=== PATIENT | female | born 1960 | race Caucasian/White ===

== ENCOUNTER 2020-03-26 08:17 | Outpatient (CLI) | payer BC, SELFPAY ==
--- NOTE | 2020-03-26 08:43 | EST_ITS ---
Patient Info Name: Shruthi Rosenthal Age: 59 years : 1960 Gender: Female Ht: 67 in Wt: 130 lbs BSA: 1.67 m2 Exam Date: 03/26/2020 8:57 AM Exam Location: [facility] Stress Patient Status: Outpatient Admit Date: 03/26/2020 Staff Ordering Physician: Kath Sesay NP Attending Provider: Kath Sesay NP Exercise Technologist: Linda Moreno RDCS Exercise Physician: Hector Do DO Exam Type: CA stress test treadmill Study Info Indications R07.9 - Chest pain, unspecified A treadmill exercise stress test was performed. Summary 1. 1. Negative Hema exercise stress test for ischemic ST changes by ECG criteria. 2. 2. Good functional capacity, achieving 10 METs of workload. 3. 3. Appropriate HR response to exercise. 4. 4. Appropriate HR recovery at 1 minute post exercise. 5. 5. No imaging with stress testing. 6. 6. Patient informed of the above results. Protocol: Hema Stress ECG Details Stage: REST Duration (min): 1 min : 9 sec Speed (mph): 0.0 Grade (%): 0 HR (bpm): 54 SBP (mmHg): 130 DBP (mmHg): 79 METS: --- Stage: REST Duration (min): 9 min : 50 sec Speed (mph): 0.0 Grade (%): 0 HR (bpm): 67 SBP (mmHg): 130 DBP (mmHg): 79 METS: --- Stage: STAGE 1 Duration (min): 1 min : 0 sec Speed (mph): 1.7 Grade (%): 10 HR (bpm): 86 SBP (mmHg): 130 DBP (mmHg): 79 METS: --- Stage: STAGE 1 Duration (min): 2 min : 0 sec Speed (mph): 1.7 Grade (%): 10 HR (bpm): 97 SBP (mmHg): 130 DBP (mmHg): 79 METS: --- Stage: STAGE 1 Duration (min): 3 min : 0 sec Speed (mph): 1.7 Grade (%): 10 HR (bpm): 98 SBP (mmHg): 127 DBP (mmHg): 64 METS: --- Stage: STAGE 2 Duration (min): 1 min : 0 sec Speed (mph): 2.5 Grade (%): 12 HR (bpm): 108 SBP (mmHg): 127 DBP (mmHg): 64 METS: --- Stage: STAGE 2 Duration (min): 2 min : 0 sec Speed (mph): 2.5 Grade (%): 12 HR (bpm): 114 SBP (mmHg): 167 DBP (mmHg): 90 METS: --- Stage: STAGE 2 Duration (min): 3 min : 0 sec Speed (mph): 2.5 Grade (%): 12 HR (bpm): 123 SBP (mmHg): 167 DBP (mmHg): 90 METS: --- Stage: STAGE 3 Duration (min): 1 min : 0 sec Speed (mph): 3.4 Grade (%): 14 HR (bpm): 134 SBP (mmHg): 167 DBP (mmHg): 90 METS: --- Stage: STAGE 3 Duration (min): 2 min : 0 sec Speed (mph): 3.4 Grade (%): 14 HR (bpm): 140 SBP (mmHg): 140 DBP (mmHg): 72 METS: --- Stage: STAGE 3 Duration (min): 3 min : 0 sec Speed (mph): 3.4 Grade (%): 14 HR (bpm): 143 SBP (mmHg): 132 DBP (mmHg): 74 METS: --- Stage: RECOVERY Duration (min): 0 min : 59 sec Speed (mph): 0.0 Grade (%): 0 HR (bpm): 108 SBP (mmHg): 132 DBP (mmHg): 74 METS: --- Stage: RECOVERY Duration (min): 1 min : 59 sec Speed (m
== END 2020-03-26 08:18 | disposition home or self-care (01) ==
PROVIDERS: PCP Family Medicine; Visit Provider Nurse Practitioner Family
DX: R07.9 Chest pain, unspecified (principal)
CPT/HCPCS: 93017

== ENCOUNTER → 2020-05-17 09:14 | Outpatient (CLI) | payer BC, SELFPAY ==
--- NOTE | ~2020-05-17 | DEXA_ITS ---
Bone Density Report Name: Shruthi Rosenthal Age: 60 Sex: Female Ethnicity: White Date of : 1960 Indication: postmenopausal; screening for osteoporosis; parental hip fracture; Referring Provider: SHEREE GRIMM Study: Bone densitometry was performed. Exam Date: May 17, 2020 Accession number: [id number] Bone Density: Region BMD T-score Z-score Classification AP Spine (L1-L4) 0.913 -1.2 0.2 Osteopenia Femoral Neck (Left) 0.691 -1.4 -0.1 Osteopenia Total Hip (Left) 0.796 -1.2 -0.3 Osteopenia Femoral Neck (Right) 0.685 -1.5 -0.2 Osteopenia Total Hip (Right) 0.802 -1.1 -0.2 Osteopenia Total Hip Mean 0.799 -1.2 -0.3 Osteopenia World Health Organization criteria for BMD impression classify patients as: Normal (T-score at or above -1.0), Osteopenia (T-score between -1.0 and -2.5), or Osteoporosis (T-score at or below -2.5). 10-year Fracture Risk(1): Major Osteoporotic Fracture 14% Hip Fracture 0.6% Reported Risk Factors: [place] (), Neck BMD=0.685, BMI=20.3, parental fracture (1) FRAX(R) Version 3.08. Fracture probability calculated for an untreated patient. Fracture probability may be lower if the patient has received treatment. Clinical Information Provided by Patient: Parent has had a hip fracture Has used the following medications: Vitamin D Patient maximum height was 67 Menopause Age: 50 Drinks caffeinated beverages Onset of menses at age 13 Number of children 2 Impression: The patient has low bone mass, based on the Right Femoral Neck T-score. The patient has an estimated ten-year risk of hip fracture of 0.6% and an estimated ten-year risk of major fracture of 14%, based on the WHO FRAX algorithm. The patient has risk factors, including: parental hip fracture. Discussion: BONE DENSITY IS LOW AT ONE OR MORE SKELETAL SITES. This patient's lowest T-score is low at one or more skeletal sites. It meets the World Health Organization's (WHO) criteria for ?low bone mass? (T-score between -1.0 and -2.5). The patient's 10-year risk of fracture as calculated by FRAX is less than the threshold where pharmacological therapy is recommended by the National Osteoporosis Foundation (NOF). However, all treatment decisions require clinical judgment and consideration of individual patient factors, including patient preferences, comorbidities, previous drug use, risk factors not captured in the FRAX model (e.g., frailty, falls, vitamin D deficiency, increased bone turnover, interval significant decline in bone density) and possible under or overestimation of fracture risk by FRAX. The patient should follow a healthful lifestyle (good nutrition with adequate calcium and vitamin D, and appropriate weight-bearing exercise). Follow-Up: Consider repeating this study in 2 to 3 years to reassess
== END ==
PROVIDERS: Visit Provider Obstetrics & Gynecology
DX: Z78.0 Asymptomatic menopausal state (principal); M85.89 Other specified disorders of bone density and structure, multiple sites
CPT/HCPCS: 77080

== ENCOUNTER 2020-06-15 00:38 | Outpatient (CLI) | payer BC, SELFPAY ==
[2020-06-15 18:51] LABS: SARS-CoV-2 RNA PCR Negative
== END 2020-06-15 00:39 | disposition home or self-care (01) ==
LOC: ANHCOVIDDT 00:38
PROVIDERS: PCP Family Medicine; Visit Provider Internal Medicine Gastroenterology
DX: Z01.812 Encounter for preprocedural laboratory examination (principal); Z20.828 Contact with and (suspected) exposure to other viral communicable diseases
CPT/HCPCS: 87635; C9803; U0003

== ENCOUNTER 2020-06-18 01:08 | Day surgery (SDC) | payer BC, SELFPAY ==
[2020-06-09 13:34] VITALS: BMI 20.9
[2020-06-18 06:14] VITALS: BP 113/56; PULSE 69; RESP 20; TEMP 36.6; O2SAT 100; BMI 19.9
[2020-06-18] MEDS: LACTATED RINGERS 1,000 ML 150 ML IV CONT (06:25)
--- NOTE | 2020-06-18 07:21 | WPDANESEPPF ---
Anes - Initial Pre Proc Eval Procedure: Operation Date: 06/18/20 07:30 Proposed Procedures p Screening Colonoscopy - Roc Mac MD Date/Time: 06/18/20 07:21 Surgeon: Roc Mac MD Pre Op Diagnosis: Neoplasm Screening Patient Data Age: 60 Gender: F Height: 5 ft 6 in Weight: 56.1 kg Last Vital Signs Temp 98 F 06/18/20 06:14 Pulse 69 06/18/20 06:14 Resp 20 06/18/20 06:14 BP 113/56 L 06/18/20 06:14 Pulse Ox 100 06/18/20 06:14 Allergies Allergy/AdvReac Type Severity Reaction Status Date / Time No Known Allergies Verified 06/18/20 06:13 Home Medications Medication Instructions Recorded Confirmed Type ergocalciferol (vitamin D2) 1,000 unit PO DAILY 06/18/20 06/18/20 History [Vitamin D2] lactobacillus combination no.8 3,000 mmu cells PO DAILY 06/18/20 06/18/20 History [Adult Probiotic] Patient hx anesthesia problems: none Family hx anesthesia problems: none PMFSH Past Medical History Medical History Atrophic vaginitis GERD without esophagitis History of vaginal delivery x 2 Vaginal discharge Surgical History Surgical History History of cholecystectomy History of endometrial ablation History of loop electrical excision procedure (LEEP) Family History Family History Mother Family history of malignant neoplasm of breast in first degree relative Family history of malignant neoplasm of uterus Father Family history of heart disease in male family member before age 55 Grandparent Hypertension Cerebrovascular accident Family history of malignant neoplasm of breast Family history of lymphoma Other Acute myocardial infarction Social History Social History Smoking status: Never smoker Alcohol intake: never Substance use: never Substance use type: does not use Living arrangements: with family Spiritual care concerns: No Anes - Eval Final PreProcedure Day of Procedure 06/18/20 07:21 Patient weight: normal Heart: regular rate and rhythm Lungs: clear to auscultation Airway: Mallampati scale class II Neurological: alert and oriented Last oral intake: >/= 8 hours ASA classification: II Emergent: no Anesthetic plan: proceed Anesthesia type and monitoring: general GIVS and standard monitoring Informed Consent: The patient's anesthetic plan and its attendant risks and benefits were discussed with the patient/family/POA. Questions were solicited and answers provided to the satisfaction of the patient/family/POA.
--- NOTE | 2020-06-18 07:37 | PM.HPGS ---
History of Present Illness History of Present Illness Consent: Risks, benefits, and alternatives have been discussed and questions answered. Patient agrees to proceed with procedure. Chief complaint: Neoplasm Screening Narrative: Shruthi Rosenthal is a 60 year old female here for colonoscopy, last one 10 years ago Review of Systems Constitutional: Constitutional: Denies headache(s) and Denies weakness Eyes: Eyes: Denies blurry vision ENT: Reports Normal hearing present, Denies headache(s) and Denies neck pain Cardiovascular: Cardiovascular: Denies chest pain and Denies dyspnea Respiratory: Respiratory: Denies dyspnea Gastrointestinal: Gastrointestinal: Reports no additional gastrointestinal complaints Genitourinary: Genitourinary: Denies dysuria Musculoskeletal: Musculoskeletal: Denies neck pain Integumentary/Breasts: Skin/Breast: Denies dry skin Neurologic: Reports Normal hearing present, Denies headache(s) and Denies weakness Psychiatric: Psychiatric: Denies anxiety Endocrine: Endocrine: Denies change in body appearance Hematologic/Lymphatic: Hematologic/Lymphatic: Denies easy bleeding Allergic/Immunologic: Allergic/Immunologic: Denies urticaria PMFSH Past Medical History Medical History Atrophic vaginitis GERD without esophagitis History of vaginal delivery x 2 Vaginal discharge Surgical History Surgical History History of cholecystectomy History of endometrial ablation History of loop electrical excision procedure (LEEP) Family History Family History Mother Family history of malignant neoplasm of breast in first degree relative Family history of malignant neoplasm of uterus Father Family history of heart disease in male family member before age 55 Grandparent Hypertension Cerebrovascular accident Family history of malignant neoplasm of breast Family history of lymphoma Other Acute myocardial infarction Social History Social History Smoking status: Never smoker Alcohol intake: never Substance use: never Substance use type: does not use Living arrangements: with family Spiritual care concerns: No Meds Home Medications and Allergies Home Medications Medication Instructions Recorded Confirmed Type ergocalciferol (vitamin D2) 1,000 unit PO DAILY 06/18/20 06/18/20 History [Vitamin D2] lactobacillus combination no.8 3,000 mmu cells PO DAILY 06/18/20 06/18/20 History [Adult Probiotic] Allergies Allergy/AdvReac Type Severity Reaction Status Date / Time No Known Allergies Verified 06/18/20 06:13 Vital Signs Vital Signs - 24 hr 06/18/20 06:14 Temperature 98 F Pulse Rate 69 Respiratory Rate 20 Blood Pressure 113/56 L Pulse Oximetry 100 Exam Const: General: comfortable and no acute distress HENMT: General nose exam: Normal nares present Eyes: General: appearance normal, both eyes and all related structures Neck: Neck: no JVD Resp: Auscultation: clear to auscultation bilaterally Cardio: Rate: regular rate Rhythm: regular rhythm GI: Inspection: non-distended GI Palp: Yes Soft to palpation Skin: General skin exam: normal color Neuro: General: gait normal Speech: normal speech Extrem: General: normal to inspection Psych: Mental Status: mental status grossly normal Assessment and Plan Assessment and plan (1) Colon cancer screening: Code(s): Z12.11 - Encounter for screening for malignant neoplasm of colon Status: Acute Assessment and Plan: will proceed with colonoscopy
[2020-06-18 08:10] VITALS: BP 93/47; PULSE 59; RESP 16; O2SAT 100
[2020-06-18 08:20] VITALS: BP 86/50; PULSE 53; RESP 14; O2SAT 100
[2020-06-18 08:30] VITALS: BP 99/61; PULSE 59; RESP 16; O2SAT 100
== END 2020-06-18 08:51 | disposition home or self-care (01) ==
PROVIDERS: PCP Family Medicine; Visit Provider Internal Medicine Gastroenterology
PROC: 0DJD8ZZ Inspection of Lower Intestinal Tract, Via Natural or Artificial Opening Endoscopic (ICD-10-PCS; CPT 45378; principal; 2020-06-18 07:30)
DX: Z12.11 Encounter for screening for malignant neoplasm of colon (principal); K21.9 Gastro-esophageal reflux disease without esophagitis; Z90.49 Acquired absence of other specified parts of digestive tract; K62.89 Other specified diseases of anus and rectum; K64.4 Residual hemorrhoidal skin tags; D12.0 Benign neoplasm of cecum; K63.5 Polyp of colon
CPT/HCPCS: 45385; 88305; J2704; J7120

== ENCOUNTER 2021-09-07 13:27 | Emergency (ER) | payer OTHER, SELFPAY ==
--- NOTE | 2021-09-07 13:37 | ED.FALL ---
HPI - Fall General Chief Complaint: Fall Stated Complaint: Forehead injury and right elbow. Time Seen by Provider: 09/07/21 13:37 Source: patient Mode of arrival: ambulatory Limitations: no limitations History of Present Illness HPI Narrative: 61 yo F presents with laceration to forehead and abrasion to R elbow. pt was walking up basement stairs carrying multiple things in her arms. She tripped at the top step and hit R elbow first and then hit forehead on floor. Was not able to break her fall due to all the items she was carrying. Denies LOC. Her was right there and helped her up. She denies headache, vision change, no N/V. Ambulatory with steady gait. no complaints of pain. All systems reviewed and negative except as noted above. Related Data Home Medications Medication Instructions Recorded Confirmed lactobacillus combination no.8 3,000 mmu cells PO DAILY 06/18/20 06/08/21 [Adult Probiotic] cholecalciferol (vitamin D3) 25 25 mcg PO DAILY 03/22/21 06/08/21 mcg (1,000 unit) capsule Allergies Allergy/AdvReac Type Severity Reaction Status Date / Time No Known Allergies Verified 06/08/21 14:06 Review of Systems Review of Systems: CONSTITUTIONAL: Denies fever, chills, or sweats. EYES: Denies visual changes, redness, or discharge. ENT: Denies rhinorrhea, congestion, sore throat, or otalgia. CARDIOVASCULAR: Denies chest pain, palpitations, or edema. RESPIRATORY: Denies cough or dyspnea. GASTROINTESTINAL: Denies abdominal pain, nausea, vomiting, or diarrhea. GENITOURINARY: Denies dysuria or hematuria. SKIN: Denies rash or itching. Laceration to forehead. Abrasion to right elbow. MUSCULOSKELETAL: Denies back pain, joint pain, or myalgia. NEUROLOGIC: Denies headache, numbness, or weakness. PSYCHIATRIC: Denies anxiety or depression. All other systems reviewed are negative, except as documented in HPI. [facility] Past Medical History Medical History Atrophic vaginitis Colon cancer screening GERD without esophagitis History of vaginal delivery x 2 Osteopenia Vaginal discharge Surgical History Surgical History History of cholecystectomy History of endometrial ablation History of loop electrical excision procedure (LEEP) S/P lumpectomy of breast Family History Family History Mother Family history of malignant neoplasm of breast in first degree relative Family history of malignant neoplasm of uterus Father Family history of heart disease in male family member before age 55 Grandparent Hypertension Cerebrovascular accident Family history of malignant neoplasm of breast Family history of lymphoma Other Acute myocardial infarction Social History Social History Smoking status: Never smoker Alcohol intake: never Substance use: never Substance use type: does not use Spiritual care concerns: No Comments At time of signature, agree with nursing past medical, surgical, social and family history. There is no relevant family history pertinent to the presenting complaint. Exam Narrative: GENERAL: This is a well-nourished, well-developed patient, in no apparent distress. HEAD: normocephalic, atraumatic. EYES: PERRL. Sclera clear/white. Vision is grossly intact. EARS: External ears normal, auditory canals clear and without drainage, TMs normal without perforation. Hearing grossly intact. NOSE: External nose normal with no obvious nasal discharge, nares without redness, no rhinorrhea. THROAT: Mucous membranes moist, posterior pharynx clear. NECK: Neck supple, non-tender without lymphadenopathy, masses or thyromegaly. CARDIOVASCULAR: Regular rate and rhythm without murmurs, gallops, or rubs. RESPIRATORY: Clear to auscultation. Breath sounds equal bilaterally. No wheezes, rales,
[2021-09-07 13:39] VITALS: BP 128/63; PULSE 62; RESP 16; TEMP 36.9; O2SAT 100
--- NOTE | 2021-09-07 14:15 | PC.NURSE ---
Last tetanus 2016 per [employer] [facility] and .
== END 2021-09-07 14:01 | disposition home or self-care (01) ==
PROVIDERS: Emergency Provider Nurse Practitioner Family; PCP Family Medicine
DX: S01.81XA Laceration without foreign body of other part of head, initial encounter (principal); S50.311A Abrasion of right elbow, initial encounter; W10.9XXA Fall (on) (from) unspecified stairs and steps, initial encounter; K21.9 Gastro-esophageal reflux disease without esophagitis; M85.80 Other specified disorders of bone density and structure, unspecified site
CPT/HCPCS: 12011; 99212; G0463

== ENCOUNTER 2022-10-23 15:04 | Outpatient (CLI) | payer OTHER, SELFPAY ==
--- NOTE | ~2022-10-23 | DEXA_ITS ---
Bone Density Report Name: DARRELL RAY Age: 62 Sex: Female Ethnicity: White Date of : 1960 Indication: postmenopausal; screening for osteoporosis; Referring Provider: SHEREE GRIMM Study: Bone densitometry was performed. Exam Date: October 23, 2022 Accession number: [id number] Bone Density: Region BMD T-score Z-score Classification AP Spine(L1-L4) 0.922 -1.1 0.4 Osteopenia Femoral Neck (Left) 0.678 -1.5 -0.1 Osteopenia Total Hip (Left) 0.801 -1.2 -0.1 Osteopenia Femoral Neck (Right) 0.621 -2.1 -0.7 Osteopenia Total Hip (Right) 0.775 -1.4 -0.3 Osteopenia Total Hip Mean 0.788 -1.3 -0.2 Osteopenia World Health Organization criteria for BMD impression classify patients as: Normal (T-score at or above -1.0), Osteopenia (T-score between -1.0 and -2.5), or Osteoporosis (T-score at or below -2.5). 10-year Fracture Risk(1): Major Osteoporotic Fracture 9.8% Hip Fracture 1.4% Reported Risk Factors: [place] (), Neck BMD=0.621, BMI=22.7 (1) FRAX(R) Version 3.08. Fracture probability calculated for an untreated patient. Fracture probability may be lower if the patient has received treatment. Previous Exams: Region Exam Age BMD T-score BMD Change BMD Change Date g/cm2 vs Baseline vs Previous AP Spine (L1-L4) 10/23/2022 62 0.922 -1.1 -0.072 (-7.3%) -0.054 (-5.5%) 08/04/2015 55 0.976 -0.6 -0.019 (-1.9%) -0.019 (-1.9%) 01/08/2012 51 0.995 -0.5 Total Hip(Left) 10/23/2022 62 0.801 -1.2 -0.111 (-12.2% -0.088 (-9.9%) 08/04/2015 55 0.890 -0.4 -0.023 (-2.5%) -0.023 (-2.5%) 01/08/2012 51 0.912 -0.2 Total Hip(Right) 10/23/2022 62 0.775 -1.4 -0.133 (-14.6% -0.078 (-9.1%) 08/04/2015 55 0.853 -0.7 -0.055 (-6.0%) -0.055 (-6.0%) 01/08/2012 51 0.908 -0.3 *Denotes significance at 95% confidence level, LSC for AP Spine = 0.022 g/cm2, LSC for Total Hip = 0.027 g/cm2 # Denotes dissimilar scan types or analysis methods Clinical Information Provided by Patient: Has used the following medications: Vitamin D Patient maximum height was 67 Menopause Age: 50 Drinks caffeinated beverages Onset of menses at age 13 Number of children 2 Impression: The patient has low bone mass, based on the Right Femoral Neck T-score. The patient has an estimated ten-year risk of hip fracture of 1.4% and an estimated ten-year risk of major fracture of 9.8%, based on the WHO FRAX algorithm. The BMD for
== END 2022-10-23 15:05 | disposition home or self-care (01) ==
PROVIDERS: PCP Family Medicine; Visit Provider Obstetrics & Gynecology
DX: M85.80 Other specified disorders of bone density and structure, unspecified site (principal)
CPT/HCPCS: 77080

== ENCOUNTER 2023-04-05 08:33 | Outpatient (CLI) | payer OTHER, SELFPAY ==
[2023-04-09 10:36] LABS: Kit Draw Collected
== END 2023-04-05 08:34 | disposition home or self-care (01) ==
LOC: ANHGOSHLAB 08:35
PROVIDERS: PCP Family Medicine; Visit Provider Nurse Practitioner Family
DX: Z00.00 Encounter for general adult medical examination without abnormal findings (principal); I10 Essential (primary) hypertension; Z13.1 Encounter for screening for diabetes mellitus; Z13.21 Encounter for screening for nutritional disorder; Z13.220 Encounter for screening for lipoid disorders; Z13.29 Encounter for screening for other suspected endocrine disorder
CPT/HCPCS: 36415

== ENCOUNTER 2024-04-08 08:33 | Outpatient (CLI) | payer OTHER, SELFPAY ==
[2024-04-08 14:09] LABS: Basophils Absolute Auto 0.1 K/mm3 (0.0-0.1); Basophils Percent Auto 0.9 % (0.2-1.2); Eosinophils Absolute Auto 0.5 K/mm3 (0-0.3); Eosinophils Percent Auto 7.2 % (0-4.4); Hematocrit 46.7 % (37.0-47.0); Immature Granulocyte Absolute 0.01 K/mm3 (0.00-0.031); Immature Granulocyte Percent A 0.2 % (0-0.5); Lymphocytes Absolute Auto 2.56 K/mm3 (0.9-3.2); Lymphocytes Percent Auto 39.3 % (18.3-44.2); Mean Corpuscular HGB Conc 32.1 g/dl (32-36); Mean Corpuscular Hemoglobin 30.1 pg (26-34); Mean Corpuscular Volume 93.6 fl (80-100); Mean Platelet Volume 12.1 fl (7.4-10.4); Monocytes Absolute Auto 0.4 K/mm3 (0.1-0.6); Monocytes Percent Auto 6.6 % (2.6-8.5); Neutrophils Percent Auto 45.8 % (45.5-73.1); Platelet Count Result 271 k/mm3 (150-375); Red Blood Count 4.99 M/mm3 (4.2-5.4); Red Cell Distribution Width 14.1 % (11.5-14.5); White Blood Count 6.5 K/mm3 (4.5-10.0)
[2024-04-08 14:34] LABS: Alanine Aminotransferase 18 U/L (6-35); Albumin Level 4.6 g/dL (3.5-5.1); Alkaline Phosphatase 54 U/L (38-126); Anion Gap 5 mmol/L (4-12); Aspartate Amino Transferase 63 U/L (14-36); Bilirubin,Total 0.5 mg/dL (0.2-1.3); Blood Urea Nitrogen 15 mg/dL (7-17); Calcium 9.7 mg/dL (8.4-10.2); Carbon Dioxide 33 mmol/L (22-30); Chloride 102 mmol/L (98-107); Cholesterol 286 mg/dL (0-200); Estimated Glomerular Filt Rate > 60; Glucose 87 mg/dL (65-110); HDL Direct 71 mg/dL; Potassium 4.4 mmol/L (3.4-5.0); Sodium 140 mmol/L (137-145); Triglycerides 93 mg/dL (<150)
[2024-04-08 14:44] LABS: LDL Cholesterol Direct 144 mg/dL
== END 2024-04-08 08:34 | disposition home or self-care (01) ==
PROVIDERS: PCP Family Medicine; Visit Provider Nurse Practitioner Family
DX: Z00.00 Encounter for general adult medical examination without abnormal findings (principal); E55.9 Vitamin D deficiency, unspecified; E78.5 Hyperlipidemia, unspecified
CPT/HCPCS: 36415; 80053; 80061; 82306; 84443; 85025

== ENCOUNTER 2025-04-13 09:14 | Outpatient (CLI) | payer MEDICARE, SELFPAY ==
--- OUTSIDE RECORDS SUMMARY | 2025-04-13 09:57 | XMS_ITS | Clinical Summary ---
Author Organization [employer] [facility] Address [address] [place] [address] Care Team Providers Care Transit Specialist Name Role Phone Unavailable Primary Care Provider Unavailabl e Medications mupirocin (BACTROBAN) 2 % Ointment Apply to the affected area(s) three times daily 22 Gram 04/13/2025 Active rosuvastatin (CRESTOR) 5 mg tablet Take 1 Tablet (5 mg) by mouth daily at bedtime. 90 Tablet 3 04/13/2025 Active Encounters Date Type Department Care Team Description 03/24/2025 External Device Data [facility] Provider, Abstract 02/10/2025 External Device Data [facility] Provider, Abstract 01/21/2025 External Device Data [facility] Provider, Abstract 01/20/2025 External Device Data [facility] Provider, Abstract from Last 3 Months Social History Tobacco Use Types Packs/Day Years Used Date Smoking Tobacco: Never Assessed Comments Unknown Sex and Gender Information Value Date Recorded Sex Assigned at Not on file Legal Sex Female 12:35 PM [employer] Gender Identity Not on file Sexual Orientation Not on file Plan of Treatment Health Maintenance Due Date Last Done Comments DTAP/TDAP/TD VACCINES (1 - Tdap) 1979 HPV/Cotest (21-29) 1981 CERVICAL CANCER SCREENING 1990 HPV/Cotest (30-65) 1990 PAP SMEAR 1990 BREAST CANCER SCREENING 2000 COLORECTAL SCREENING 2005 Colorectal Cancer Screening 2005 FIT-DNA Q 3 years 2005 FIT/FOBT Q 1 year 2005 Flex Sig/CT Colonography Q 5 years 2005 ZOSTER VACCINE (1 of 2) 2010 INFLUENZA VACCINE (#1) 2025 RSV VACCINE (60+ or ) (1 - 1-dose 75+ series) 2035 Insurance RX [employer] Medicare Part D
--- OUTSIDE RECORDS SUMMARY | 2025-04-13 09:57 | XMS_ITS | Clinical Summary ---
Author Organization [facility] Address [address] [place] [address] Care Team Providers Care Hosiery Pairer Name Role Phone Arin Russo MD Primary Care Provider Unknown, Provider Unavailable Unavailable Kath Sesay APRN-CONFIDENTIAL INVESTIGATOR Unavailable [phone] Source Comments [facility],non-owned Affiliates and Associated Physician Practices is amultiple site organization consisting of ambulatory clinics and hospital sitesin [place], [place], [place] and [place]. This disclosure is being madepursuant to the Care Everywhere program and may not contain all information available regarding this patient. Last updated 18.[facility] Family History Medical History Relation Name Comments Cancer - Breast Maternal Grandmother Cancer - Bladder Mother Cancer - Breast Mother Relation Name Status Comments Maternal Grandmother Mother Social History Tobacco Use Types Packs/Day Years Used Date Smoking Tobacco: Never Assessed Comments No Sex and Gender Information Value Date Recorded Sex Assigned at Female 11/28/2024 9:04 AM CDT Legal Sex Female 2:53 PM JAIL GUARD Gender Identity Female 11/28/2024 9:04 AM CDT Sexual Orientation Straight 11/28/2024 9: 04 AM CDT Last Filed Vital Signs Vital Sign Reading Time Taken Comments Blood Pressure - - Pulse - - Temperature - - Respiratory Rate - - Oxygen Saturation - - Inhaled Oxygen Concentration - - Weight 63.5 kg (140 lb) 11/26/2024 9:45 AM CDT Height 170.2 cm (5' 7) 11/26/2024 9:45 AM CDT Body Mass Index 21.93 11/26/2024 9:45 AM CDT Plan of Treatment Health Maintenance Due Date Last Done Comments COLOGUARD (AGES 45-75) - COLON CA SCREENING 1960 COLON MONITORING 1960 COLONOSCOPY - COLON CA SCREENING 1960 CT COLONOGRAPHY - COLON CA SCREENING 1960 Colorectal Cancer Screening 1960 FIT - COLON CA SCREENING 1960 FLEX SIG - COLON CA SCREENING 1960 LIPID TESTING 1960 HIV SCREENING 1975 HEPATITIS C SCREENING 04/27/1978 DTAP/TDAP/TD VACCINES (1 - Tdap) 1979 PAP SMEAR 1981 PNEUMOCOCCAL VACCINE 50+ (1 of 1 - PCV) 2010 ZOSTER VACCINE (1 of 2) 2010 DEPRESSION SCREENING 07/09/2024 COVID-19 VACCINE (1 - 2023- season) 2025 INFLUENZA VACCINE (#1) 2025 MAMMOGRAM 11/26/2026 11/26/2024, 050 12/2023, 08/10/2022, Additional history exists Respiratory Syncytial Virus (RSV) Vaccine Pt: or over 60 yrs (1 - 1-dose 75+ series) 2035 HEPATITIS B VACCINE Aged Out No longe r eligible based on patient's age to complete this topic HIB VACCINE Aged Out No longer eligi ble based on patient's age to complete this topic HPV VACCINE Aged Out No longer eligi ble based on patient's age to complete this topic MENINGOCOCCAL (Group B) VACCINE SHARED DECISION-MAKING Aged Out No longer eligible based on patient's age to complete this topic MENINGOCOCCAL GROUPS A/C/Y/W VACCINE Aged Out No longer eligible based on patient's age to complete this topic Procedures Procedure Name Priority Date/Time Associated Diagnosis Comments MAMMO BILAT SCREENING W SHAKIR Routine 11/26/2024 9:41 AM CDT Encounter for screening mammogram for malignant neoplasm of breast from Last 3 Months or Most Recently Relevant to Health Maintenance Results * Mammo Bilat Screening W Shakir (11/26/2024 9:41 AM CDT) Anatomical Region Laterality Modality Breast Bilateral Mammography 11/28/2024 12:2 3 PM CDT Impressions 11/28/2024 12:32 PM CDT IMPRESSION: Benign mammogram, without evidence of malignancy. Dense breast parenchyma. RECOMMENDATION: 1. Screening mammography in one year, pending no interval breast concerns. 2. Given the extremely dense breast parenchyma and family history of breast cancer, consider annual complete breast ultrasound or breast MRI for supplemental screening. 3. By the NCCN guidelines and family history of breast cancer, consideration of genetic testing is recommended, if not already performed. Patient will receive the examination results by lay letter. OVERALL ASSESSMENT: BI-RADS CATEGORY 2: BENIGN. > Interpreting Provider: Maricel Glaser MD, FACR on 11/28/2024 12:32 PM Narrative 11/28/2024 12:32 PM CDT EXAMINATIONS: BILATERAL DIGITAL SCREENING MAMMOGRAM AND BILATERAL BREAST TOMOSYNTHESIS LOCATION: [facility] EXAM DATE: 11/26/2024 HISTORY: Screening. Family history of breast cancer in her mother at age 54 and a maternal grandmother at age 58. Reported prior benign left breast biopsy. RISK ASSESSMENT CALCULATION: Patient completed a breast cancer risk assessment during her appointment 11/26/2024. Based upon the information she provided and her mammographic breast density, her lifetime risk of developing breast cancer is 10 % (Average Risk <15%; Intermediate / Moderate Risk 15-19%; High Risk > 20%). Given her extremely dense breast parenchyma, supplemental screening ultrasound is suggested for further evaluation and can be performed at 6 month intervals with screening mammography or the time of screening mammography. For further information, please call [phone]. Risk assessment based upon the Tyrer-Cuzick v8 model. By the NCCN guidelines and family history of breast cancer, consideration of genetic testing is recommended, if not already performed. COMPARISON: Prior mammogram 11/12/2023. TECHNIQUE: Tomosynthesis (3D) and reconstructed synthetic 2-D images acquired and reviewed in the bilateral craniocaudal and mediolateral oblique projections. A total of images obtained. Scar marker placed on the right breast. Transpara AI was utilized in the interpretation. BREAST PARENCHYMAL COMPOSITION: Category D: The breasts are extremely dense which lowers the sensitivity of mammography. FINDINGS: There are no suspicious findings or evidence of malignancy on mammography. Tissue marker in the left breast. There is no significant change from the prior. Jeremiah Oliveira MD MAMMO ORDERABLES Final Result from Last 3 Months or Most Recently Relevant to Health Maintenance Insurance [employer] AMB[employer]TER Care Teams Hosiery Pairer Relationship Specialty Start Date End Date Arin Russo MD [address] [place] [address] PCP - General Internal Medicine 11/24/24 Kath Sesay, PATIENT RELATIONS SPECIALIST-CONFIDENTIAL INVESTIGATOR [address] [place] [address] PCP - Attributed-[employer] [facility] [employer] [place] 06/08/24 Unknown, Provider 11/24/24
[2025-04-13 12:55] LABS: Hematocrit 42.9 % (37.0-47.0); Hemoglobin 13.8 g/dL (12.0-15.0); Immature Granulocyte Percent A 0.3 % (0-0.5); Lymphocytes Absolute Auto 2.37 K/mm3 (0.9-3.2); Mean Corpuscular HGB Conc 32.2 g/dl (32-36); Mean Corpuscular Hemoglobin 29.9 pg (26-34); Mean Corpuscular Volume 92.9 fl (80-100); Nucleated Red Blood Cells Absolute Auto 0.000 K/mm3 (0.0-0.012); Nucleated Red Blood Cells Perc 0.0 % (0.0-0.2); Platelet Count Result 232 k/mm3 (150-375); Red Blood Count 4.62 M/mm3 (4.2-5.4); White Blood Count 6.9 K/mm3 (4.5-10.0)
[2025-04-13 13:07] LABS: Alanine Aminotransferase 27 U/L (6-35); Albumin Level 4.4 g/dL (3.5-5.1); Alkaline Phosphatase 52 U/L (38-126); Anion Gap 7 mmol/L (4-12); Aspartate Amino Transferase 70 U/L (14-36); Bilirubin,Total 0.4 mg/dL (0.2-1.3); Blood Urea Nitrogen 15 mg/dL (7-17); Calcium 9.1 mg/dL (8.4-10.2); Carbon Dioxide 29 mmol/L (22-30); Chloride 104 mmol/L (98-107); Cholesterol 167 mg/dL (0-200); Estimated Glomerular Filt Rate > 60; Glucose 89 mg/dL (65-110); HDL Direct 70 mg/dL; Potassium 4.1 mmol/L (3.4-5.0); Sodium 140 mmol/L (137-145); Total Protein 7.2 g/dL (6.3-8.2); Triglycerides 50 mg/dL (<150)
[2025-04-13 13:39] LABS: Thyroid Stimulating Hormone Reflex 1.650 uIU/mL (0.465-4.68)
== END 2025-04-13 09:15 | disposition home or self-care (01) ==
LOC: ANHGOSHLAB 09:14
PROVIDERS: PCP Nurse Practitioner Family; Visit Provider Nurse Practitioner Family
DX: E78.5 Hyperlipidemia, unspecified (principal); Z13.29 Encounter for screening for other suspected endocrine disorder; E55.9 Vitamin D deficiency, unspecified
CPT/HCPCS: 36415; 80053; 80061; 82306; 84443; 85025

== ENCOUNTER 2025-06-29 10:15 | Outpatient (CLI) | payer MEDICARE, SELFPAY ==
--- OUTSIDE RECORDS SUMMARY | 2025-06-29 11:45 | XMS_ITS | Clinical Summary ---
Author Organization [employer] [facility] Address [address] [place] [address] Care Team Providers Care Servicer Name Role Phone Unavailable Primary Care Provider Unavailabl e Medications mupirocin (BACTROBAN) 2 % Ointment Apply to the affected area(s) three times daily 22 Gram 04/13/2025 6:04 PM CDT 04/13/2025 Active rosuvastatin (CRESTOR) 5 mg tablet Take 1 Tablet (5 mg) by mouth daily at bedtime. 90 Tablet 3 04/13/2025 6:04 PM CDT 04/13/2025 Active Encounters Date Type Department Care Team Description 05/26/2025 External Device Data [facility] ABSTRACTION Provider, Abstract 04/29/2025 External Device Data [facility] ABSTRACTION Provider, Abstract 04/28/2025 External Device Data [facility] ABSTRACTION Provider, Abstract from Last 3 Months Social History Tobacco Use Types Packs/Day Years Used Date Smoking Tobacco: Never Assessed Comments Unknown Sex and Gender Information Value Date Recorded Sex Assigned at Not on file Legal Sex Female 12:35 PM GETTERING OPERATOR Gender Identity Not on file Sexual Orientation Not on file Plan of Treatment Health Maintenance Due Date Last Done Comments DTAP/TDAP/TD VACCINES (1 - Tdap) 1979 BREAST CANCER SCREENING 2000 COLORECTAL SCREENING 2005 Colorectal Cancer Screening 2005 FIT-DNA Q 3 years 2005 FIT/FOBT Q 1 year 2005 Flex Sig/CT Colonography Q 5 years 2005 PNEUMOCOCCAL VACCINE 50+ YEARS (1 of 1 - PCV) 05/01/20 10 ZOSTER VACCINE (1 of 2) 2010 INFLUENZA VACCINE (#1) 2025 OSTEOPOROSIS SCREENING 2025 RSV VACCINE (60+ or ) (1 - 1-dose 75+ series) 2035 Insurance RX AET[employer] Medicare Part D
--- OUTSIDE RECORDS SUMMARY | 2025-06-29 11:45 | XMS_ITS | Clinical Summary ---
Author Organization [facility] [employer] Address [address] [place] [address] Care Team Providers Care Welfare Supervisor Name Role Phone Arin Russo MD Primary Care Provider Unknown, Provider Unavailable Unavailable Kath Sesay APRN-SUSPENDER MAKER Unavailable [phone] Source Comments [facility] [employer],non-owned Affiliates and Associated Physician Practices is amultiple site organization consisting of ambulatory clinics and hospital sitesin [place], [place], [place] and [place]. This disclosure is being madepursuant to the Care Everywhere program and may not contain all information available regarding this patient. Last updated 18.[facility] [employer] Family History Medical History Relation Name Comments Cancer - Breast Maternal Grandmother Cancer - Bladder Mother Cancer - Breast Mother Relation Name Status Comments Maternal Grandmother Mother Social History Tobacco Use Types Packs/Day Years Used Date Smoking Tobacco: Never Assessed Comments No Sex and Gender Information Value Date Recorded Sex Assigned at Female 11/28/2024 9:04 AM CDT Legal Sex Female 2:53 PM REQUISITION APPROVER Gender Identity Female 11/28/2024 9:04 AM CDT [...] Health Maintenance Due Date Last Done Comments BONE DENSITY TESTING 1960 COLOGUARD (AGES 45-75) - COLON CA SCREENING [...] DEPRESSION SCREENING 07/09/2024 COVID-19 VACCINE (1 - season) 2025 INFLUENZA VACCINE (#1) 2025 MAMMOGRAM 11/26/2026 11/26/2024, 05/0 12/2023, 08/10/2022, Additional history exists Respiratory Syncytial [...] SCREENING MAMMOGRAM AND BILATERAL BREAST TOMOSYNTHESIS LOCATION: [facility] EXAM DATE: 11/26/2024 HISTORY: Screening. Family [...] screening mammography. For further information, please call [phone]. Risk assessment based upon the Tyrer-Cuzick v8 [...] Insurance [employer] AMBETTER Care Teams Welfare Supervisor Relationship Specialty Start Date End Date Arin Russo MD [address] [place] [id number] PCP - General Internal Medicine 11/24/24 Kath Sesay, SHE-SUSPENDER MAKER [address] [place] [address] PCP - Attributed-[employer] [facility] [employer] [place] 06/08/24 Unknown, Provider 11/24/24
--- OUTSIDE RECORDS SUMMARY | 2025-06-29 11:45 | XMS_ITS | Clinical Summary ---
Author Organization [facility] Address [address] [place] [address] Care Team Providers Care Machine Operator Name Role Phone Jeremiah Oliveira MD Primary Care Provider Allergies No known active allergies Medications cholecalciferol (VITAMIN D-[address]) 25 mcg Tab tablet Take 1 tablet (1,000 Units total) by mouth daily. Active rosuvastatin (CRESTOR) 5 MG tablet Take 1 tablet (5 mg total) by mouth. 04/18/2024 Active Calcium Carb-Cholecalcif rudi (CALCIUM 500 + D OR) Active Active Problems Problem Noted Date Diagnosed Date Family history of breast cancer 10/15/2017 Shoulder pain, right 05/09/2015 Overview (09/01/2024): mri 10/2015 and ortho Abnormal ultrasound of breast 09/18/2011 Diffuse cystic mastopathy 08/27/2009 Social History Tobacco Use Types Packs/Day Years Used Date Smoking Tobacco: Never Passive Smoke Exposure: Never Smokeless Tobacco: Never Tobacco Cessation:Counseling Given: No Alcohol Use Standard Drinks/Week Comments Yes 0 (1 standard drink = 0.6 oz pur e alcohol) PHQ-2 Answer Date Recorded Patient Health Questionnaire-2 Score 0 09/01/2024 Comments No Sex and Gender Information Value Date Recorded Sex Assigned at Not on file Legal Sex Female 2:08 PM FAMILY SERVICE CASEWORKER Gender Identity Female 07/20/2021 3:33 PM FAMILY SERVICE CASEWORKER Sexual Orientation Not on file Last Filed Vital Signs Vital Sign Reading Time Taken Comments Blood Pressure 119/71 09/01/2024 11:54 AM FAMILY SERVICE CASEWORKER Pulse 76 09/01/2024 11:54 AM FAMILY SERVICE CASEWORKER Temperature 38.1 C (100.6 F) 09/01/2024 11:54 AM FAMILY SERVICE CASEWORKER Respiratory Rate 20 09/01/2024 11:54 AM FAMILY SERVICE CASEWORKER Oxygen Saturation 100% 09/01/2024 11:54 AM FAMILY SERVICE CASEWORKER Inhaled Oxygen Concentration - - Weight 64 kg (141 lb) 09/01/2024 11:54 AM FAMILY SERVICE CASEWORKER Height 170.2 cm (5' 7) 09/01/2024 11:54 AM FAMILY SERVICE CASEWORKER Body Mass Index 22.08 09/01/2024 11:54 AM FAMILY SERVICE CASEWORKER Plan of Treatment Health Maintenance Due Date Last Done Comments Colorectal Cancer Screening Colonoscopy (10 Years) 1960 Hepatitis C 1978 DTaP, Tdap and Td Vaccines (1 - Tdap) 1979 Pneumococcal Vaccine: 50+ Years (1 of 1 - PCV) 2010 Zoster Vaccines (1 of 2) 2010 COVID-19 Vaccine (1 - season) 2025 Influenza Adult (#1) 2025 Dexa Scan (General) 2025 Mammogram Screening 11/11/2025 11/12/2023, 08/10/2022, 07/25/2021, Additional history exists RSV Immunization or 60+ Years (1 - 1-dose 75+ series) 2035 PHQ-2 (Physician [place]) Completed 09/01/2024 Hepatitis A Vaccines Aged Out No long er eligible based on patient's age to complete this topic Meningococcal B Vaccine Aged Out No l onger eligible based on patient's age to complete this topic Meningococcal Vaccine Aged Out No sera jennifer eligible based on patient's age to complete this topic RSV Immunizations Under 20 Months Aged Out No longer eligible based on patient's age to complete this topic Procedures Procedure Name Priority Date/Time Associated Diagnosis Comments MG SCREENING W SKY EDWINA DIGI Routine 08/10/2022 8:25 AM FAMILY SERVICE CASEWORKER Encounter for screening mammogram for malignant neoplasm of breast from Last 3 Months or Most Recently Relevant to Health Maintenance Results * MG SCREENING W SKY EDWINA DIGI (08/10/2022 8:25 AM FAMILY SERVICE CASEWORKER) Anatomical Region Laterality Modality Breast Bilateral Mammography 08/10/2022 8:29 AM FAMILY SERVICE CASEWORKER Narrative 08/10/2022 8:31 AM FAMILY SERVICE CASEWORKER Examination: Screening bilateral mammogram Exam Date/Time: 08/10/2022 8:10 AM Clinical history: No current complaints. Comparison: 07/25/2021 Technique: Digital screening mammography of both breasts was performed. Breast tomosynthesis acquisitions were obtained and reviewed. This study was read with the assistance of a computer-aided detection system. Tissue density: The breast tissue is heterogeneously dense, which may obscure small masses. Findings: No suspicious masses, malignant appearing calcifications, skin thickening or other abnormalities are present. No significant change from the prior exam. IMPRESSION: No suspicious mammographic findings. Recommendation: 1. Routine Screening, Bilateral Assessment: ACR BI-RADS 2 - BENIGN FINDING(S) Ordered By: OSORIO GRIMM Interpreted By: Keon Fulton, 08/10/2022 8:29 AM Osorio Grimm MD MAMMO Final Result from Last 3 Months or Most Recently Relevant to Health Maintenance Insurance AMBETTER Care Teams Machine Operator Relationship Specialty Start Date End Date Jeremiah Oliveira MD [address] [place] [address] PCP - General FAMILY PRACTICE 06/10/21
[2025-06-29 14:17] LABS: Alanine Aminotransferase 20 U/L (6-35); Albumin Level 4.1 g/dL (3.5-5.1); Alkaline Phosphatase 59 U/L (38-126); Anion Gap 5 mmol/L (4-12); Aspartate Amino Transferase 44 U/L (14-36); Bilirubin,Total 0.4 mg/dL (0.2-1.3); Blood Urea Nitrogen 14 mg/dL (7-17); Calcium 9.9 mg/dL (8.4-10.2); Carbon Dioxide 28 mmol/L (22-30); Chloride 103 mmol/L (98-107); Estimated Glomerular Filt Rate > 60; Glucose 96 mg/dL (65-110); Potassium 4.5 mmol/L (3.4-5.0); Sodium 136 mmol/L (137-145); Total Protein 6.9 g/dL (6.3-8.2)
== END 2025-06-29 10:16 | disposition home or self-care (01) ==
PROVIDERS: PCP Nurse Practitioner Family; Visit Provider Nurse Practitioner Family
DX: R74.01 Elevation of levels of liver transaminase levels (principal)
CPT/HCPCS: 36415; 80053

== ENCOUNTER 2025-07-08 07:54 | Outpatient (CLI) | payer MEDICARE, SELFPAY ==
--- NOTE | ~2025-07-08 | DEXA_ITS ---
Bone Density Report Name: DARRELL RAY Age: 65 Sex: Female Ethnicity: White Date of : 1960 Indication: osteopenia; parental hip fracture; Referring Provider: RUI VIVEROS Study: Bone densitometry was performed. Exam Date: July 08, 2025 Accession number: [id number] Bone Density: Region BMD T-score Z-score Classification AP Spine(L1-L4) 0.900 -1.3 0.4 Osteopenia Femoral Neck (Left) 0.635 -1.9 -0.4 Osteopenia Total Hip (Left) 0.812 -1.1 0.2 Osteopenia Femoral Neck (Right) 0.600 -2.2 -0.7 Osteopenia Total Hip (Right) 0.764 -1.5 -0.2 Osteopenia Total Hip Mean 0.788 -1.3 0.0 Osteopenia World Health Organization criteria for BMD impression classify patients as: Normal (T-score at or above -1.0), Osteopenia (T-score between -1.0 and -2.5), or Osteoporosis (T-score at or below -2.5). 10-year Fracture Risk(1): Major Osteoporotic Fracture 20% Hip Fracture 2.0% Reported Risk Factors: [place] (), Neck BMD=0.600, BMI=22.8, parental fracture (1) FRAX(R) Version 3.08. Fracture probability calculated for an untreated patient. Fracture probability may be lower if the patient has received treatment. Previous Exams: Region Exam Age BMD T-score BMD Change BMD Change Date g/cm2 vs Baseline vs Previous AP Spine (L1-L4) 07/08/2025 65 0.900 -1.3 -0.095 (-9.6%) -0.023 (-2.5%) 10/23/2022 62 0.922 -1.1 -0.072 (-7.3%) -0.054 (-5.5%) 08/04/2015 55 0.976 -0.6 -0.019 (-1.9%) -0.019 (-1.9%) 01/08/2012 51 0.995 -0.5 Total Hip(Left) 07/08/2025 65 0.812 -1.1 -0.101 (-11.0% 0.010 (1.3%) 10/23/2022 62 0.801 -1.2 -0.111 (-12.2% -0.088 (-9.9%) 08/04/2015 55 0.890 -0.4 -0.023 (-2.5%) -0.023 (-2.5%) 01/08/2012 51 0.912 -0.2 Total Hip(Right) 07/08/2025 65 0.764 -1.5 -0.144 (-15.8% -0.011 (-1.4%) 10/23/2022 62 0.775 -1.4 -0.133 (-14.6% -0.078 (-9.1%) 08/04/2015 55 0.853 -0.7 -0.055 (-6.0%) -0.055 (-6.0%) 01/08/2012 51 0.908 -0.3 *Denotes significance at 95% confidence level, LSC for AP Spine = 0.022 g/cm2, LSC for Total Hip = 0.027 g/cm2 # Denotes dissimilar scan types or analysis methods Clinical Information Provided by Patient: Parent has had a hip fracture Has used the following medications: Vitamin D, Calcium Patient maximum height was 67 Menopause Age: 50 Drinks caffeinated beverages Onset of menses at age 13 Number of children 2 Impression: The patient has low bone mass, based on the Right Femoral Neck T-score. The patient has an estimated ten-year risk of hip fracture of 2% and an estimated ten-year risk of major fracture of 20%, based on the WHO FRAX algorithm. The patient has risk factors, including: parental hip fracture. No significant bone loss was observed. Discussion: BONE DENSITY IS LOW AT ONE OR MORE SKELETAL SITES. THE PATIENT'S BMD AND CLINICAL RISK FACTORS CONTRIBUTE TO THIS PATIENT'S INCREASED RISK OF FRACTURE. This patient's lowest T-score is low at one or more skeletal sites. It meets the World Health Organization's (WHO) criteria for ?low bone mass? (T-score between -1.0 and -2.5). The patient's 10-year risk of a major osteoporotic fracture as calculated by FRAX exceeds the threshold where pharmacological therapy is recommended by the National Osteoporosis Foundation (NOF). However, all treatment decisions require clinical judgment and consideration of individual patient factors, including patient preferences, comorbidities, previous drug use, risk factors not captured in the FRAX model (e.g., frailty, falls, vitamin D deficiency, increased bone turnover, interval significant decline in bone density) and possible under or overestimation of fracture risk by FRAX. The patient should follow a healthful lifestyle (good nutrition with adequate calcium and vitamin D, and appropriate weight-bearing exercise). Follow-Up: Consider a repeat BMD and Vertebral Fracture Assessment (VFA) exam in 2 years or sooner if medically necessary, to reassess this patient's status. Reported by: JERRELL on 07/08/2025 8:40:00 AM. Reviewed, dictated and finalized at location A.
--- OUTSIDE RECORDS SUMMARY | 2025-07-08 08:01 | XMS_ITS | Clinical Summary ---
Author Organization [facility] Address [address] [place] [address] Care Team Providers Care Personal Counselor Name Role Phone Unavailable Primary Care Provider Unavailabl e Medications mupirocin (BACTROBAN) 2 % Ointment Apply to the affected area(s) three times daily 22 Gram 04/13/2025 6:04 PM CDT 04/13/2025 Active rosuvastatin (CRESTOR) 5 mg tablet Take 1 Tablet (5 mg) by mouth daily at bedtime. 90 Tablet 3 04/13/2025 6:04 PM CDT 04/13/2025 Active Encounters Date Type Department Care Team Description 06/30/2025 External Device Data [facility] ABSTRACTION Provider, Abstract 05/26/2025 External Device Data [facility] ABSTRACTION Provider, Abstract 04/29/2025 External Device Data [facility] ABSTRACTION Provider, Abstract 04/28/2025 External Device Data [facility] ABSTRACTION Provider, Abstract from Last 3 Months Social History Tobacco Use Types Packs/Day Years Used Date Smoking Tobacco: Never Assessed Comments Unknown Sex and Gender Information Value Date Recorded Sex Assigned at Not on file Legal Sex Female 12:35 PM LACE PINNER Gender Identity Not on file Sexual Orientation [...]
--- OUTSIDE RECORDS SUMMARY | 2025-07-08 08:01 | XMS_ITS | Clinical Summary ---
Author Organization [facility] Address [address] [place] [address] Care Team Providers Care Biomedical Manager Name Role Phone Jeremiah Oliveira MD Primary [...] on file Legal Sex Female 2:08 PM CIRCULATION DIRECTOR Gender Identity Female 07/20/2021 3:33 PM CIRCULATION DIRECTOR Sexual Orientation Not on file Last Filed Vital Signs Vital Sign Reading Time Taken Comments Blood Pressure 119/71 09/01/2024 11:54 AM CIRCULATION DIRECTOR Pulse 76 09/01/2024 11:54 AM CIRCULATION DIRECTOR Temperature 38.1 C (100.6 F) 09/01/2024 11:54 AM CIRCULATION DIRECTOR Respiratory Rate 20 09/01/2024 11:54 AM CIRCULATION DIRECTOR Oxygen Saturation 100% 09/01/2024 11:54 AM CIRCULATION DIRECTOR Inhaled Oxygen Concentration - - Weight 64 kg (141 lb) 09/01/2024 11:54 AM CIRCULATION DIRECTOR Height 170.2 cm (5' 7) 09/01/2024 11:54 AM CIRCULATION DIRECTOR Body Mass Index 22.08 09/01/2024 11:54 AM CIRCULATION DIRECTOR Plan of Treatment Health Maintenance Due Date [...] - 1-dose 75+ series) 2035 PHQ-2 (Physician [place]) Completed 09/01/2024 Hepatitis A Vaccines Aged Out [...] SKY EDWINA DIGI Routine 08/10/2022 8:25 AM CIRCULATION DIRECTOR Encounter for screening mammogram for malignant neoplasm of breast from Last 3 Months or Most Recently Relevant to Health Maintenance Results * MG SCREENING W SKY EDWINA DIGI (08/10/2022 8:25 AM CIRCULATION DIRECTOR) Anatomical Region Laterality Modality Breast Bilateral Mammography 08/10/2022 8:29 AM CIRCULATION DIRECTOR Narrative 08/10/2022 8:31 AM CIRCULATION DIRECTOR Examination: Screening bilateral mammogram Exam Date/Time: 08/10/2022 [...] to Health Maintenance Insurance AMBETTER Care Teams Biomedical Manager Relationship Specialty Start Date End Date Jeremiah Oliveira MD [address] [place] [address] PCP - General FAMILY PRACTICE 06/10/21
== END 2025-07-08 07:55 | disposition home or self-care (01) ==
LOC: ANHFOHIMG 07:58
PROVIDERS: PCP Nurse Practitioner Family; Visit Provider Nurse Practitioner Family
DX: Z78.0 Asymptomatic menopausal state (principal); M85.88 Other specified disorders of bone density and structure, other site; M85.852 Other specified disorders of bone density and structure, left thigh; M85.851 Other specified disorders of bone density and structure, right thigh
CPT/HCPCS: 77080